=== PATIENT | male | born 1950 | race Caucasian/White ===

== ENCOUNTER 2022-03-12 14:23 | Emergency (ER) | payer BC, OTHER ==
[2022-03-12 15:01] VITALS: BMI 29.2
[2022-03-12] MEDS ORDERED: BEBTELOVIMAB (EUA) 175 MG/2 ML VIAL IVPUSH ONE (16:42)
[2022-03-12 19:05] VITALS: BP 132/73; PULSE 83; TEMP 98.2
== END 2022-03-12 19:05 | disposition home or self-care (01) ==
LOC: JER 14:23
PROC: 3E033GC Introduction of Other Therapeutic Substance into Peripheral Vein, Percutaneous Approach (ICD-10-PCS; principal; 2022-03-12)
DX: U07.1 COVID-19 (principal)
CPT/HCPCS: 99284-25; Q0222